=== PATIENT | male | born 1990 | race Caucasian/White ===

== ENCOUNTER 2025-03-24 00:06 | Observation (INO) | payer SELFPAY ==
[2025-03-24] VITALS (16 sets, daily range): BP systolic 105–131; BP diastolic 52–83; PULSE 63–94; RESP 12–18; TEMP 36.3–37; O2SAT 93–100
--- NOTE | ~2025-03-24 | CT_ITS ---
CT of the Abdomen and Pelvis: Indication: Abdominal pain Technique: 2.5 mm axial scans were obtained through the abdomen and pelvis following intravenous adm inistration of 100 cc of Omnipaque 350. Dose reduction technique was used on this scan by utilizing a utomated exposure control and iterative reconstruction technique. The dose-length product (DLP) was 2 98.61 mGy-cm. Findings: Scans through the lung bases are unremarkable. The liver, spleen, pancreas, gallbladder, adrenals and kidneys are within normal limits. No evidence of aortic aneurysm. No lymphadenopathy. Appendix is dilated to 13 mm with mild periappendiceal inflammatory change. No abscess or free air. N o bowel obstruction. Images through the pelvis were performed. Urinary bladder unremarkable. No pelvic mass seen. No ascit es. Impression: Acute appendicitis, as detailed above. No abscess or free air. Reviewed, dictated and finalized at [facility]. Impression: Acute appendicitis, as detailed above. No abscess or free air.
--- OUTSIDE RECORDS SUMMARY | 2025-03-24 00:09 | XMS_ITS | Continuity of Care Document ---
Author Name Debbi Mishra Address [address] [facility] [place] [address] Organization Unknown Address [address] [place] [address] Medications No known medications Problems No known problems
--- OUTSIDE RECORDS SUMMARY | 2025-03-24 00:09 | XMS_ITS | Continuity of Care Document ---
Author Name Debbi Mishra Address [address] [facility] [place] [address] Organization Unknown Address [address] [place] [address] Medications No known medications Problems No known problems
--- OUTSIDE RECORDS SUMMARY | 2025-03-24 00:09 | XMS_ITS | Data Portability ---
Author Organization [place] [facility] [employer], Main Office Address [address] [place] [address] Assessment No assessment recorded. Plan of Treatment Reminders Order Date Submit Date Provider Last Modified By Organization Details Last Modified Time Details Appointments None recorded. Lab None recorded. Referral None recorded. Procedures None recorded. Surgeries None recorded. Imaging None recorded. Medication Orders Medrol (Riccardo) 4 mg tablets in a dose pack 2022 023 [facility][id number], [address], [place], [id number], 3 11:50:18 methocarbam ol 750 mg tablet 2022 023 [facility] #[id number], [address], [place], [id number], 3 11:50:19 Patient TargetsNo targets recorded. Patient InstructionsNo instructions recorded. Reason for Referral None Reported. Results Created Date Observation Date Name Description Value Unit Range Abnormal Flag Note LastModifiedBy Organization Detail LastModifiedTime 06/07/2006/08/2021 REFLE XIVE URINE CULTU RE reflexive urine culture NO CULTU RE INDIC ATED Not Available [facility] [address] [place], [address], 06/08/2021 03:03:05 06/07/20 21 06/08/2021 URINA LYSIS , COMPL ETE W/REF ELIAZAR TO CULTU RE color yellow yellow normal Not Available [employer] [facility] [address] [place], [address], 06/08/2021 03:03:04 06/07/20 21 06/08/2021 URINA LYSIS , COMPL ETE W/REF ELIAZAR TO CULTU RE appearance clear clear normal Not Available [address], [address], 06/08/2021 03:03:04 06/07/20 21 06/08/2021 URINA LYSIS , COMPL ETE W/REF ELIAZAR TO CULTU RE specific gravity 1.020 1.001- 1.035 normal Not Available [address], [address], 06/08/2021 03:03:04 06/07/20 21 06/08/2021 URINA LYSIS , COMPL ETE W/REF ELIAZAR TO CULTU RE pH 6.0 5.0-8. 0 normal Not Available [address], [address], 06/08/2021 03:03:04 06/07/20 21 06/08/2021 URINA LYSIS , COMPL ETE W/REF ELIAZAR TO CULTU RE glucose negati ve negati ve normal Not Available [address], [address], 06/08/2021 03:03:04 06/07/20 21 06/08/2021 URINA LYSIS , COMPL ETE W/REF ELIAZAR TO CULTU RE bilirubin negati ve negati ve normal Not Available [address], [address], 06/08/2021 03:03:04 06/07/2006/08/2021 URINA LYSIS , COMPL ETE W/REF ELIAZAR TO CULTU RE ketones negati ve negati ve normal Not Available [address], [address], 06/08/2021 03:03:04 06/07/20 21 06/08/2021 URINA LYSIS , COMPL ETE W/REF ELIAZAR TO CULTU RE occult blood negati ve negati ve normal Not Available [address], [address], 06/08/2021 03:03:04 06/07/20 21 06/08/2021 URINA LYSIS , COMPL ETE W/REF ELIAZAR TO CULTU RE protein negati ve negati ve normal Not Available [address], [address], 06/08/2021 03:03:04 06/07/2006/08/2021 URINA LYSIS , COMPL ETE W/REF ELIAZAR TO CULTU RE nitrite negati ve negati ve normal Not Available [address], [address], 06/08/2021 03:03:04 06/07/2006/08/2021 URINA LYSIS , COMPL ETE W/REF ELIAZAR TO CULTU RE leukocyte esterase negati ve negati ve normal Not Available [address], [address], 06/08/2021 03:03:04 06/07/20 21 06/08/2021 URINA LYSIS , COMPL ETE W/REF ELIAZAR TO CULTU RE WBC none seen /hpf < or = 5 normal Not Available [address], [address], 06/08/2021 03:03:04 06/07/2006/08/2021 URINA LYSIS , COMPL ETE W/REF ELIAZAR TO CULTU RE RBC none seen /hpf < or = 2 normal Not Available [address], [address], 06/08/2021 03:03:04 06/07/20 21 06/08/2021 URINA LYSIS , COMPL ETE W/REF ELIAZAR TO CULTU RE squamous epithelial cells none seen /hpf < or = 5 normal Not Available [facility] [address], [place], [address], 06/08/2021 03:03:04 06/07/20 21 06/08/2021 URINA LYSIS , COMPL ETE W/REF ELIAZAR TO CULTU RE bacteria none seen /hpf none seen normal Not Available [facility] [address], [address], 06/08/2021 03:03:04 06/07/20 21 06/08/2021 URINA LYSIS , COMPL ETE W/REF ELIAZAR TO CULTU RE hyaline cast none seen /lpf none seen normal Not Available [facility] [address], [address], 06/08/2021 03:03:04 06/07/20 21 06/08/2021 CBC (INCL UDES DIFF/ PLT) white blood cell count 5.8 thous and/u L 3.8-10 .8 normal Not Available [address], [address], 06/08/2021 03:03:03 06/07/20 21 06/08/2021 CBC (INCL UDES DIFF/ PLT) red blood cell count 5.36 dayanna on/uL 4.20-5 .80 normal Not Available [address], [address], 06/08/2021 03:03:03 06/07/20 21 06/08/2021 CBC (INCL UDES DIFF/ PLT) hemoglobin 16.1 g/dL 13.2-1 7.1 normal Not Available [facility] [address], [address], 06/08/2021 03:03:03 06/07/20 21 06/08/2021 CBC (INCL UDES DIFF/ PLT) hematocrit 47.8 % 38.5-5 0.0 normal Not Available [facility] [address], [address], 06/08/2021 03:03:03 06/07/20 21 06/08/2021 CBC (INCL UDES DIFF/ PLT) MCV 89.2 fL 80.0-1 00.0 normal Not Available [address], [address], 06/08/2021 03:03:03 06/07/20 21 06/08/2021 CBC (INCL UDES DIFF/ PLT) MCH 30.0 pg 27.0-3 3.0 normal Not Available [address], [address], 06/08/2021 03:03:03 06/07/20 21 06/08/2021 CBC (INCL UDES DIFF/ PLT) MCHC 33.7 g/dL 32.0-3 6.0 normal Not Available [address], [address], 06/08/2021 03:03:03 06/07/20 21 06/08/2021 CBC (INCL UDES DIFF/ PLT) RDW 12.3 % 11.0-1 5.0 normal Not Available [address], [address], 06/08/2021 03:03:03 06/07/20 21 06/08/2021 CBC (INCL UDES DIFF/ PLT) platelet count 202 thous and/u L 140-40 0 normal Not Available [address], [address], 06/08/2021 03:03:03 06/07/20 21 06/08/2021 CBC (INCL UDES DIFF/ PLT) MPV 10.6 fL 7.5-12 .5 normal Not Available [address], [address], 06/08/2021 03:03:03 06/07/20 21 06/08/2021 CBC (INCL UDES DIFF/ PLT) absolute neutrophils 3265 cells /uL 1500-7 800 normal Not Available [address], [address], 06/08/2021 03:03:03 06/07/20 21 06/08/2021 CBC (INCL UDES DIFF/ PLT) absolute lymphocytes 1752 cells /uL 850-39 00 normal Not Available [address], [address], 06/08/2021 03:03:03 06/07/20 21 06/08/2021 CBC (INCL UDES DIFF/ PLT) absolute monocytes 452 cells /uL 200-95 0 normal Not Available [address], [address], 06/08/2021 03:03:03 06/07/2006/08/2021 CBC (INCL UDES DIFF/ PLT) absolute eosinophils 290 cells /uL 15-500 normal Not Available [address], [address], 06/08/2021 03:03:03 06/07/20 21 06/08/2021 CBC (INCL UDES DIFF/ PLT) absolute basophils 41 cells /uL 0-200 normal Not Available [address], [address], 06/08/2021 03:03:03 06/07/20 21 06/08/2021 CBC (INCL UDES DIFF/ PLT) neutrophils 56.3 % normal Not Available [address], [address], 06/08/2021 03:03:03 06/07/2006/08/2021 CBC (INCL UDES DIFF/ PLT) lymphocytes 30.2 % normal Not Available [address], [address], 06/08/2021 03:03:03 06/07/20 21 06/08/2021 CBC (INCL UDES DIFF/ PLT) monocytes 7.8 % normal Not Available [address], [address], 06/08/2021 03:03:03 06/07/20 21 06/08/2021 CBC (INCL UDES DIFF/ PLT) eosinophils 5.0 % normal Not Available [address], [address], 06/08/2021 03:03:03 06/07/2006/08/2021 CBC (INCL UDES DIFF/ PLT) basophils 0.7 % normal Not Available [address], [address], 06/08/2021 03:03:03 06/07/2006/08/2021 HEMOG LOBIN A1C hemoglobin A1C 5.2 %_of_ total _HGB <5.7 normal Not Available [address], [address], 06/08/2021 03:03:03 06/07/2006/08/2021 COMPR EHENS COLLEEN METAB OLIC PANEL creatinine 1.02 mg/dL 0.60-1 .35 normal Not Available [address], [address], 06/08/2021 03:03:02 06/07/20 21 06/08/2021 COMPR EHENS COLLEEN METAB OLIC PANEL glucose 82 mg/dL 65-99 normal Fasti ng refer ence inter kendra Not Available [address], [address], 06/08/2021 03:03:02 06/07/20 21 06/08/2021 COMPR EHENS COLLEEN METAB OLIC PANEL urea nitrogen (BUN) 19 mg/dL 7-25 normal Not Available [address], [address], 06/08/2021 03:03:02 06/07/20 21 06/08/2021 COMPR EHENS COLLEEN METAB OLIC PANEL eGFR non-afr. irish 96 mL/mi n/1.7 3m2 > or = 60 normal Not Available [address], [address], 06/08/2021 03:03:02 06/07/20 21 06/08/2021 COMPR EHENS COLLEEN METAB OLIC PANEL eGFR 111 mL/mi n/1.7 3m2 > or = 60 normal Not Available [address], [address], 06/08/2021 03:03:02 06/07/20 21 06/08/2021 COMPR EHENS COLLEEN METAB OLIC PANEL BUN/creatini ne ratio not applic able (calc ) 6-22 Not Available [address], [address], 06/08/2021 03:03:02 06/07/20 21 06/08/2021 COMPR EHENS COLLEEN METAB OLIC PANEL sodium 139 mmol/ L 135-14 6 normal Not Available [address], [address], 06/08/2021 03:03:02 06/07/20 21 06/08/2021 COMPR EHENS COLLEEN METAB OLIC PANEL potassium 4.3 mmol/ L 3.5-5. 3 normal Not Available [address], [address], 06/08/2021 03:03:02 06/07/20 21 06/08/2021 COMPR EHENS COLLEEN METAB OLIC PANEL chloride 101 mmol/ L 98-110 normal Not Available [address], [address], 06/08/2021 03:03:02 06/07/20 21 06/08/2021 COMPR EHENS COLLEEN METAB OLIC PANEL carbon dioxide 31 mmol/ L 20-32 normal Not Available [address], [address], 06/08/2021 03:03:02 06/07/20 21 06/08/2021 COMPR EHENS COLLEEN METAB OLIC PANEL calcium 9.9 mg/dL 8.6-10 .3 normal Not Available [address], [address], 06/08/2021 03:03:02 06/07/20 21 06/08/2021 COMPR EHENS COLLEEN METAB OLIC PANEL protein, total 8.0 g/dL 6.1-8. 1 normal Not Available [address], [address], 06/08/2021 03:03:02 06/07/20 21 06/08/2021 COMPR EHENS COLLEEN METAB OLIC PANEL albumin 5.0 g/dL 3.6-5. 1 normal Not Available [address], [address], 06/08/2021 03:03:02 06/07/20 21 06/08/2021 COMPR EHENS COLLEEN METAB OLIC PANEL globulin 3.0 g/dL_ (calc ) 1.9-3. 7 normal Not Available [address], [address], 06/08/2021 03:03:02 06/07/20 21 06/08/2021 COMPR EHENS COLLEEN METAB OLIC PANEL albumin/glob ulin ratio 1.7 (calc ) 1.0-2. 5 normal Not Available [address], [address], 06/08/2021 03:03:02 06/07/20 21 06/08/2021 COMPR EHENS COLLEEN METAB OLIC PANEL bilirubin, total 1.3 mg/dL 0.2-1. 2 high Not Available [address], [address], 06/08/2021 03:03:02 06/07/20 21 06/08/2021 COMPR EHENS COLLEEN METAB OLIC PANEL alkaline phosphatase 78 U/L 36-130 normal Not Available [address], [address], 06/08/2021 03:03:02 06/07/20 21 06/08/2021 COMPR EHENS COLLEEN METAB OLIC PANEL AST 14 U/L 10-40 normal Not Available [address], [address], 06/08/2021 03:03:02 06/07/20 21 06/08/2021 COMPR EHENS COLLEEN METAB OLIC PANEL ALT 12 U/L 9-46 normal Not Available [address], [address], 06/08/2021 03:03:02 06/07/20 21 06/08/2021 LIPID PANEL , STAND JERRY cholesterol, total 134 mg/dL <200 normal Not Available [address], [address], 06/08/2021 03:03:02 06/07/20 21 06/08/2021 LIPID PANEL , STAND JERRY HDL cholesterol 47 mg/dL > or = 40 normal Not Available [address], [address], 06/08/2021 03:03:02 06/07/20 21 06/08/2021 LIPID PANEL , STAND JERRY triglyceride s 63 mg/dL <150 normal Not Available [address], [address], 06/08/2021 03:03:02 06/07/20 21 06/08/2021 LIPID PANEL , STAND JERRY LDL-choleste rol 73 mg/dL _(michele c) normal Refer ence range : <100 Elvia able range <100 mg/dL for prima ry preve ntion ; <70 mg/dL for patie nts with CHD or diabe tic patie nts with > or = 2 CHD risk facto rs. LDL-C is now calcu lated using the Radha n-Hop kins calcu gypsy n, which is a valid ated novel metho d provi ding emmy r accur acy than the Fried tessa equat ion in the estim ation of LDL-C . Radha delcid SS et al. RODGER. 2013; 310(1 9): 2061- 2068 (http ://ed ucati on.Qu estDi [employer]. com/f aq/FA Q164) Not Available [facility] [address] [address] [place], [address], 06/08/2021 03:03:02 06/07/2006/08/2021 LIPID PANEL , STAND JERRY chol/HDLC ratio 2.9 (calc ) <5.0 normal Not Available [employer] [address] [address] [place], [address], 06/08/2021 03:03:02 06/07/2006/08/2021 LIPID PANEL , STAND JERRY non HDL cholesterol 87 mg/dL _(michele c) <130 normal For patie nts with diabe belinda plus 1 major ASCVD risk facto r, treat ing to a non-H DL-C goal of <100 mg/dL (LDL- C of <70 mg/dL ) is jefferson vasquez optio n. Not Available [employer] [address] [address] [place], [address], 06/08/2021 03:03:02 06/07/2006/08/2021 TSH+F REE T4 TSH 1.13 mIU/L 0.40-4 .50 normal Not Available [employer] [address] [address] [place], [address], 06/08/2021 03:03:01 06/07/20 21 06/08/2021 TSH+F REE T4 T4, free 1.2 NG/dL 0.8-1. 8 normal Not Available [employer] [facility] [address] [place], [address], 06/08/2021 03:03:01 Result Notes None recorded. Problems Name Problem SNOMED Code Status Onset Date Resolution Date Notes Provider Name and Address Organization Details Recorded Time Pityriasis versicolor 98629193 Active 2021 Not Available [facility] 3 23:13:53 Low back strain 318805167 Active 2022 GERRY Hong [address], [place], [address] , [employer] 3 11:49:51 Posterior rhinorrhea 42232926 Active 2022 GERRY Hong [address], [address], [place], [address] , [employer] 3 11:50:37 Problem Notes None recorded. Medical Equipment None Reported. Allergies No known drug allergies Medications Name Sig Start Date Stop Date Status Note LastModified by Organization Details LastModified Time methocarbam ol 750 mg tablet TAKE 1 TABLET BY MOUTH THREE TIMES DAILY NEEDED active Not Available Not Available No t Available methylpredn isolone 4 mg tablets in a dose pack FOLLOW PACKAGE DIRECTION S active Not Available Not Available No t Available ketoconazol e 2 % topical cream APPLY TOPICALLY TO THE AFFECTED AREA EVERY DAY NEEDED 01/08 completed Not Available Not Available Not Available Vitals Date Recorded Body mass index (BMI) Body height Oxygen saturation Oxygen saturation in Arterial blood by Pulse oximetry Heart rate Body temperature Body weight Systolic blood pressure Diastolic blood pressure Provider Name and Address Organization Details Last Updated DateTime 1 23.1 kg/m2 172.72 cm 98 % 98 % 73 /min 97 [degF] 96105.0 4 g 110 mm[Hg] 60 mm[Hg] Not Available [facility] 3 23:12:55 Date Recorded Body mass index (BMI) Body height Oxygen saturation Oxygen saturation in Arterial blood by Pulse oximetry Heart rate Body temperature Body weight Systolic blood pressure Diastolic blood pressure Provider Name and Address Organization Details Last Updated DateTime 2 23.1 kg/m2 172.72 cm 98 % 98 % 78 /min 98.1 [degF] 27479.0 4 g 114 mm[Hg] 72 mm[Hg] Not Available [facility] 3 23:12:55 Date Recorded Body height Body temperature Body mass index (BMI) Body weight Respiratory rate Oxygen saturation Oxygen saturation in Arterial blood by Pulse oximetry Heart rate Systolic blood pressure Diastolic blood pressure Provider Name and Address Organization Details Last Updated DateTime 3 172.72 cm 98 [degF] 23.1 kg/m2 00446.0 4 g 16 /min 99 % 99 % 72 /min 118 mm[Hg] 72 mm[Hg] [facility] [employer] 3 11:28:51 Social History Question Answer Notes LastModified by [employer] ion Details LastModified Time Tobacco Smoking Status Never Smoker Not Available [facility] 01/02/2023 23:12:15 What Is Your Level Of Caffeine Consumption? Heavy [id number] Information not available 01/02/2023 How Much Tobacco Do You Chew? None MIGRATION.[id number] 5752 Information not available 01/02/2023 In The 14 Days Before Symptom Onset, Have You Had Close Contact With A Laboratory-confir med COVID-19 While That Case Was Ill? No MIGRATION.[id number] 2998 Information not available 01/02/2023 In The 14 Days Before Symptom Onset, Have You Had Close Contact With A Person Who Is Under Investigation For COVID-19 While That Person Was Ill? No MIGRATION.998137 7427 Information not available 01/02/2023 What Type Of Diet Are You Following? REGULAR MIGRATION.359487 0418 Information not available 01/02/2023 Which Illicit Or Recreational Drugs Have You Used? None MIGRATION.446508 7690 Information not available 01/02/2023 Have There Been Any Changes To Your Family Or Social Situation? No MIGRATION.110062 4633 Information not available 01/02/2023 What Is The Fluoride Status Of Your Home? Unknown MIGRATION.543333 1858 Information not available 01/02/2023 Are There Any Guns Present In Your Home? Yes MIGRATION.642036 6403 Information not available 01/02/2023 Do You Use Insect Repellent Routinely? No MIGRATION.899385 1613 Information not available 01/02/2023 Where Do You Live? [place] MIGRATION.289039 0059 Information not available 01/02/2023 Do You Have Any Pets? Yes MIGRATION.281200 7317 Information not available 01/02/2023 What Is Your Relationship Status? MIGRATION.660294 0793 Information not available 01/02/2023 Do You Use Your Seat Belt Or Car Seat Routinely? Yes MIGRATION.956476 0233 Information not available 01/02/2023 Do You Have Smoke And Carbon Monoxide Detectors In Your Home? Yes MIGRATION.060973 9870 Information not available 01/02/2023 Are You Passively Exposed To Smoke? No MIGRATION.806264 4688 Information not available 01/02/2023 Are There Any Smokers In Your House? No MIGRATION.254015 4816 Information not available 01/02/2023 How Much Tobacco Do You Smoke? No MIGRATION.511147 5475 Information not available 01/02/2023 Do You Use Sunscreen Routinely? Yes MIGRATION.165046 6857 Information not available 01/02/2023 Have You Recently Traveled Abroad? No MIGRATION.725418 4449 Information not available 01/02/2023 Do You Have Any Dietary Restrictions? No MIGRATION.801209 9071 Information not available 01/02/2023 Sex: Unknown Functional Status Question Answer Note LastModified by Organizat ion Details LastModified Time Do you use any illicit or recreational drugs? No MIGRATION.50222 12730 Information not available 01/02/2023 Do you or have you ever used any other forms of tobacco or nicotine? Yes MIGRATION.41836 28945 Information not available 01/02/2023 What is your level of alcohol consumption? Occasional MIGRATION.86827 65645 Information not available 01/02/2023 Do you or have you ever used smokeless tobacco? Never used smokeless tobacco MIGRATION.85138 05566 Information not available 01/02/2023 Are you currently employed? 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 Current user of electronic cigarettes Marijuana MIGRATION.84879 660[address] Information not available 01/02/2023 What is your exercise level? Occasional MIGRATION.13006 53236 Information not available 01/02/2023 Mental Status None recorded. Family History Relationship Description Onset Age of this Age Resolved Age Notes LastModified by Organization Details LastModified Time Mother Renal failure syndrome [id number] Not available 01/02/2023 23:12:34 Father Malignant neoplasm of lung Smoker MIGRATION.[id number] Not available 01/02/2023 23:12:35 Sister Diabetes mellitus MIGRATION.842 [id number] Not available 01/02/2023 23:12:35 Medical History No medical history recorded. Past Encounters Encounter ID Performer Location Encounter Start Date Encounter Closed Date Diagnosis/Indication Diagnosis SNOMED-CT Code Diagnosis ICD10 Code Diagnosis Note [id number] GERRY Hong [facility] [place] [address] [place] [address] 05/24/2021 00:00:00 06/02/2021 19:51:47 [id number] Kaleb Dudley MD [facility] [place] [address] [place] [address] 03/29/2022 00:00:00 04/02/2022 09:51:12 [id number] GERRY Hong [facility] [place] [address] [place] [address] 01/08/2023 11:19:26 01/08/2023 12:07:05 Low back strain [id number] S39.012A start MDP and methocarba mol 750mg tid PRN Posterior rhinorrhea 758 38854 R09.82 take otc antihistam ine. Health Concerns Section Related Observation LastModified by Organization Detai ls LastModified Time None Recorded Concern Status LastModified by Organization Details LastModified Time None Recorded Advance Directives Directive None Recorded Payers Encounter Date Sequence Insurance Name Policy Number Policy Rico Covered Member ID Rico Member ID Guarantor Name 01/08/2023 1 [employer] ([employer]) [employer] Maria Del Carmen Espino [id number] Maria Del Carmen Espino Notes Date Note Type Note Provider Name and Address Organization Details Recorded Time 05/24/2021 text/html Generic HPI TemplateReported bypatient.Notes:Pt is here today to establish care and to have a wellness exam, doing fine, no complaints Not Available [employer] 06/02/2021 19:51:47 01/08/2023 text/html CoughReported bypatient.Quality:loo se; non productive; no hemoptysis;productive yellow sputum Severity:improving Duration:intermittent Timing:better; actual date: (1.5 weeks) Context:non-smoker Modifying Factors:not doing anything for it. Associated Symptoms:no dyspnea at rest or exertion; no orthopnea; no wheezing ; no edema; no chest pain; no paroxysmal nocturnal dyspnea; no daytime somnolence; no heartburn; no snoring; no fever; no chills; no vomiting; no agitation; no sleep attacks;post nasal drip; nasal drainageGeneric HPI TemplateReported bypatient.Location:R hip Quality:radiating down this R thigh/outer leg. Sharp w/certain movement and ache constant Severity:pain rated in general 4/10 and its worse 7/10 Duration:constant Onset/Timin days Context:started when he was putting his daughter in a chair. Aggravating factors:stretching Alleviating factors:nothing really. He has been taking ibuprofen/tylenol but not noticing a change in it. GERRY Hong [address] [facility], [address] [address], [place], [address], [employer] 01/27/2023 19:12:37
--- NOTE | 2025-03-24 01:28 | ED_ITS ---
HPI - Abdominal Pain General Chief Complaint: Abdominal Pain <Gretta Hernandez PA-C - Last Filed: 03/24/25 02:39> Stated Complaint: abd pain <Gretta Hernandez PA-C - Last Filed: 03/24/25 02:39> Time Seen by Provider: 03/24/25 01:21 <Gretta Hernandez PA-C - Last Filed: 03/24/25 02:39> History of Present Illness HPI narrative: 35 y/o M with a reported history of kidney stones presents to the emergency department for periumbilical abdominal pain that started at 7:30 p.m. yesterday evening. Patient states the pain is sharp in nature located in his periumbilical region with associated nausea and vomiting. States he has never had pain like this before. He denies dysuria, hematuria, diarrhea. States he had a subjective fever earlier this evening with chills and sweating, took Tylenol around 8:30 p.m. with improvement. No prior abdominal surgeries. <Gretta Hernandez PA-C - Last Filed: 03/24/25 02:39> Related Data Allergies/Adverse Reactions: Allergies Allergy/AdvReac Type Severity Reaction Status Date / Time No Known Allergies Allergy Verified 03/24/25 01:56 <Gretta Hernandez PA-C - Last Filed: 03/24/25 02:39> Review of Systems 2 Review of Systems: All systems reviewed & are unremarkable except as noted in HPI and below <Gretta Hernandez PA-C - Last Filed: 03/24/25 02:39> [facility] Family History Family History: Family History Sibling Diabetes mellitus Father Family history of lung cancer <TOM Sanon Last Filed: 03/24/25 02:39> Social History Social History: Social History Smoking status: Never smoker Alcohol intake: never <TOM Sanon Last Filed: 03/24/25 02:39> Exam 2 Narrative: GENERAL: Well-appearing, well-nourished, and in no acute distress. HEAD: Normocephalic, atraumatic. EYES: EOMI. ENT: Nares clear, no rhinorrhea or epistaxis. Mucous membranes moist. NECK: Supple. CHEST: Clear to auscultation. No respiratory distress. HEART: Regular rate and rhythm. No murmur heard. Normal peripheral pulses. ABDOMEN: Normoactive bowel sounds. Abdomen soft with tenderness to the periumbilical region, suprapubic and right lower quadrant. No rebound or rigidity. No CVA tenderness EXTREMITIES: Normal range of motion. No edema. SKIN: Warm, dry, no rash. NEURO: No focal deficits. Alert and oriented x3 <Gretta Hernandez PA-C - Last Filed: 03/24/25 02:39> Course Reevaluation(s) Reevaluation #1: CT showing acute appendicitis. I did re-evaluated patient, he is denying any pain right now, appears quite comfortable, updated on findings and plan for surgery. Discussed with surgeon who will admit patient <Bibi Fraire MD - Last Filed: 03/24/25 06:18> Vital Signs Vital signs: Vital Signs Temperature 97.6 F 03/24/25 00:06 Pulse Rate 94 03/24/25 00:06 Respiratory Rate 18 03/24/25 00:06 Blood Pressure 114/58 L 03/24/25 00:06 Pulse Oximetry 97 03/24/25 00:06 Oxygen Delivery Room Air 03/24/25 00:06 Temperature 97.6 F 03/24/25 00:06 Pulse Rate 78 03/24/25 05:55 Respiratory Rate 16 03/24/25 05:55 Blood Pressure 108/72 03/24/25 05:55 Pulse Oximetry 100 03/24/25 05:55 Oxygen Delivery Room Air 03/24/25 00:06 <Gretta Hernandez PA-C - Last Filed: 03/24/25 02:39> Vital Signs Temperature 97.6 F 03/24/25 00:06 Pulse Rate 94 03/24/25 00:06 Respiratory Rate 18 03/24/25 00:06 Blood Pressure 114/58 L 03/24/25 00:06 Pulse Oximetry 97 03/24/25 00:06 Oxygen Delivery Room Air 03/24/25 00:06 Temperature 97.6 F 03/24/25 00:06 Pulse Rate 78 03/24/25 05:55 Respiratory Rate 16 03/24/25 05:55 Blood Pressure 108/72 03/24/25 05:55 Pulse Oximetry 100 03/24/25 05:55 Oxygen Delivery Room Air 03/24/25 00:06 <Bibi Fraire MD - Last Filed: 03/24/25 06:18> MDM - Abdominal Pain MDM Narrative Medical decision making narrative: 35-year-old male presents emergency department for periumbilical abdominal pain, nausea and vomiting that started at 7:30 p.m.. Triage vitals are stable. Patient is afebrile and nontoxic appearing. Exam is significant for the above. Plan to obtain lab work and CT abdomen pelvis. Patient given IV fluids, Zofran and Toradol for symptomatic control. Lab work with leukocytosis of 16.6, no bandemia. Chemistries are largely unremarkable, lipase is normal. Pending CT abdomen pelvis and UA at time of sign-out to Dr. Fraire. <Gretta Hernandez PA-C - Last Filed: 03/24/25 02:39> Lab Data Result diagrams: 03/24/25 02:00 03/24/25 02:00 <Gretta Hernandez PA-C - Last Filed: 03/24/25 02:39> Labs: Lab Results 03/24/25 03/24/25 Range/Units 02:00 03:02 WBC 16.6 H (4.5-10.0) K/mm3 RBC 4.74 (4.6-6.20) M/mm3 Hgb 14.0 (14.0-18.0) g/dL Hct 41.5 L (42.0-52.0) % MCV 87.6 (80-100) fl MCH 29.5 (26-34) pg MCHC 33.7 (32-36) g/dl RDW 11.8 (11.5-14.5) % Plt Count 235 (150-375) k/mm3 MPV 9.9 (7.4-10.4) fl Immature Gran % (Auto) 0.5 (0-0.5) % Neut % (Auto) 85.6 H (45.5-73.1) % Lymph % (Auto) 5.9 L (18.3-44.2) % [place] % (Auto) 7.7 (2.6-8.5) % Eos % (Auto) 0.1 (0-4.4) % Baso % (Auto) 0.2 (0.2-1.2) % Lymph # (Auto) 0.98 (0.9-3.2) K/mm3 [place] # (Auto) 1.3 H (0.1-0.6) K/mm3 Eos # (Auto) 0.0 (0-0.3) K/mm3 Baso # (Auto) 0.0 (0.0-0.1) K/mm3 Abs Immat Gran (auto) 0.09 H (0.00-0.031) K/mm3 Absolute Neuts (auto) 14.2 H (1.3-6.7) K/mm3 Absolute Nucleated RBC 0.000 (0.0-0.012) K/mm3 Nucleated RBC % 0.0 (0.0-0.2) % Sodium 137 (137-145) mmol/L Potassium 4.1 (3.4-5.0) mmol/L Chloride 101 (98-107) mmol/L Carbon Dioxide 27 (22-30) mmol/L Anion Gap 9 (4-12) mmol/L BUN 18 (9-20) mg/dL Creatinine 1.05 (0.7-1.3) mg/dL Estim Creat Clear Calc 82 ml/min Estimated GFR > 60 (59 - ) Glucose 127 H (65-110) mg/dL Calcium 9.1 (8.4-10.2) mg/dL Total Bilirubin 1.7 H (0.2-1.3) mg/dL AST 29 (17-59) U/L ALT 22 (6-50) U/L Alkaline Phosphatase 61 (38-126) U/L Total Protein 8.0 (6.3-8.2) g/dL Albumin 4.6 (3.5-5.1) g/dL Lipase 49 (23-300) U/L Urine Color Yellow (Yellow) Urine Appearance Clear (Clear) Urine pH 6.0 (5.0-9.0) Ur Specific [place] > 1.045 H (1.001-1.035) Urine Protein Negative (Negative) mg/dL Urine Glucose (UA) Negative (Negative) mg/dL Urine Ketones Trace H (Negative) mg/dL Ur Blood (Man) Negative (Negative) Urine Nitrate Negative (Negative) Urine Bilirubin Negative (Negative) Urine Urobilinogen 1.0 (<2.0) mg/dL Leukocyte Esterase Rfl Negative (Negative) TAL/UL <Gretta Hernandez PA-C - Last Filed: 03/24/25 02:39> Lab Results 03/24/25 03/24/25 Range/Units 02:00 03:02 WBC 16.6 H (4.5-10.0) K/mm3 RBC 4.74 (4.6-6.20) M/mm3 Hgb 14.0 (14.0-18.0) g/dL Hct 41.5 L (42.0-52.0) % MCV 87.6 (80-100) fl MCH 29.5 (26-34) pg MCHC 33.7 (32-36) g/dl RDW 11.8 (11.5-14.5) % Plt Count 235 (150-375) k/mm3 MPV 9.9 (7.4-10.4) fl Immature Gran % (Auto) 0.5 (0-0.5) % Neut % (Auto) 85.6 H (45.5-73.1) % Lymph % (Auto) 5.9 L (18.3-44.2) % [place] % (Auto) 7.7 (2.6-8.5) % Eos % (Auto) 0.1 (0-4.4) % Baso % (Auto) 0.2 (0.2-1.2) % Lymph # (Auto) 0.98 (0.9-3.2) K/mm3 [place] # (Auto) 1.3 H (0.1-0.6) K/mm3 Eos # (Auto) 0.0 (0-0.3) K/mm3 Baso # (Auto) 0.0 (0.0-0.1) K/mm3 Abs Immat Gran (auto) 0.09 H (0.00-0.031) K/mm3 Absolute Neuts (auto) 14.2 H (1.3-6.7) K/mm3 Absolute Nucleated RBC 0.000 (0.0-0.012) K/mm3 Nucleated RBC % 0.0 (0.0-0.2) % Sodium 137 (137-145) mmol/L Potassium 4.1 (3.4-5.0) mmol/L Chloride 101 (98-107) mmol/L Carbon Dioxide 27 (22-30) mmol/L Anion Gap 9 (4-12) mmol/L BUN 18 (9-20) mg/dL Creatinine 1.05 (0.7-1.3) mg/dL Estim Creat Clear Calc 82 ml/min Estimated GFR > 60 (59 - ) Glucose 127 H (65-110) mg/dL Calcium 9.1 (8.4-10.2) mg/dL Total Bilirubin 1.7 H (0.2-1.3) mg/dL AST 29 (17-59) U/L ALT 22 (6-50) U/L Alkaline Phosphatase 61 (38-126) U/L Total Protein 8.0 (6.3-8.2) g/dL Albumin 4.6 (3.5-5.1) g/dL Lipase 49 (23-300) U/L Urine Color Yellow (Yellow) Urine Appearance Clear (Clear) Urine pH 6.0 (5.0-9.0) Ur Specific [place] > 1.045 H (1.001-1.035) Urine Protein Negative (Negative) mg/dL Urine Glucose (UA) Negative (Negative) mg/dL Urine Ketones Trace H (Negative) mg/dL Ur Blood (Man) Negative (Negative) Urine Nitrate Negative (Negative) Urine Bilirubin Negative (Negative) Urine Urobilinogen 1.0 (<2.0) mg/dL Leukocyte Esterase Rfl Negative (Negative) TAL/UL <Bibi Fraire MD - Last Filed: 03/24/25 06:18> Imaging Data Radiologist's impression: ITS Impressions Abdomen/Pelvis CT 03/24/25 05:30 Impression: Acute appendicitis, as detailed above. No abscess or free air. <Gretta Hernandez PA-C - Last Filed: 03/24/25 02:39> ITS Impressions Abdomen/Pelvis CT 03/24/25 05:30 Impression: Acute appendicitis, as detailed above. No abscess or free air. <Bibi Fraire MD - Last Filed: 03/24/25 06:18> Discharge Plan Discharge Clinical Impression: Acute appendicitis <TOM Sanon Last Filed: 03/24/25 02:39> Patient Disposition: Still a Patient <TOM Sanon Last Filed: 03/24/25 02:39> Condition: Serious <TOM Saonn Last Filed: 03/24/25 02:39> Instructions: Antibiotic Form <TOM Sanon Last Filed: 03/24/25 02:39> Patient Language: Jamaican <TOM Sanon Last Filed: 03/24/25 02:39> Follow-up/Referrals: PHYSICIAN NOT ON STAFF,NONSTAFF [Primary Care Provider] - <TOM Sanon Last Filed: 03/24/25 02:39>
[2025-03-24] MEDS: ONDANSETRON INJ 4 MG/2 ML VIAL IV PUSH (02:00)
[2025-03-24] MEDS: KETOROLAC 30 MG/ML VIAL (*BKC) IV PUSH (02:02)
[2025-03-24] MEDS: SODIUM CHLORIDE 0.9% IV 1,000 ML 999 ML IV CONT (02:03)
[2025-03-24 02:12] LABS: Basophils Percent Auto 0.2 % (0.2-1.2); Eosinophils Percent Auto 0.1 % (0-4.4); Hematocrit 41.5 % (42.0-52.0); Immature Granulocyte Absolute 0.09 K/mm3 (0.00-0.031); Immature Granulocyte Percent A 0.5 % (0-0.5); Lymphocytes Absolute Auto 0.98 K/mm3 (0.9-3.2); Lymphocytes Percent Auto 5.9 % (18.3-44.2); Mean Corpuscular HGB Conc 33.7 g/dl (32-36); Mean Corpuscular Hemoglobin 29.5 pg (26-34); Mean Corpuscular Volume 87.6 fl (80-100); Mean Platelet Volume 9.9 fl (7.4-10.4); Monocytes Absolute Auto 1.3 K/mm3 (0.1-0.6); Monocytes Percent Auto 7.7 % (2.6-8.5); Neutrophils Absolute Auto 14.2 K/mm3 (1.3-6.7); Neutrophils Percent Auto 85.6 % (45.5-73.1); Platelet Count Result 235 k/mm3 (150-375); Red Blood Count 4.74 M/mm3 (4.6-6.20); Red Cell Distribution Width 11.8 % (11.5-14.5); White Blood Count 16.6 K/mm3 (4.5-10.0)
[2025-03-24 02:23] LABS: Alanine Aminotransferase 22 U/L (6-50); Albumin Level 4.6 g/dL (3.5-5.1); Alkaline Phosphatase 61 U/L (38-126); Anion Gap 9 mmol/L (4-12); Aspartate Amino Transferase 29 U/L (17-59); Bilirubin,Total 1.7 mg/dL (0.2-1.3); Blood Urea Nitrogen 18 mg/dL (9-20); Calcium 9.1 mg/dL (8.4-10.2); Carbon Dioxide 27 mmol/L (22-30); Chloride 101 mmol/L (98-107); Estimated CRCL calculation 82 ml/min; Estimated Glomerular Filt Rate > 60; Glucose 127 mg/dL (65-110); Lipase 49 U/L (23-300); Potassium 4.1 mmol/L (3.4-5.0); Sodium 137 mmol/L (137-145)
[2025-03-24 03:08] LABS: Add Urine Microscopic? NO; Appearance Urine Clear (Clear); Bilirubin Urine Negative (Negative); Blood Urine Negative (Negative); Color Urine Yellow (Yellow); Glucose Urine UA Negative (Negative); Ketones Urine Trace mg/dL (Negative); Leukocyte Esterase Ur Negative LEU/UL (Negative); Nitrate Urine Negative (Negative); Protein Urine Negative (Negative); Specific Grav Ur > 1.045 (1.001-1.035)
[2025-03-24] MEDS: ceFAZolin 2 GM/D5W 50 ML 2 GM/50 ML BAG IVPB (05:54)
[2025-03-24] MEDS: MORPHINE SULFATE (*CRX) 4 MG/ML INJ IV PUSH (06:32)
[2025-03-24] MEDS: metroNIDAZOLE 500 MG/ISO 100ML 500 MG/100 ML BAG 100 MG IVPB (06:34)
--- NOTE | 2025-03-24 09:25 | PM.IMHP ---
H&P: HPI History of Present Illness Date/Time: 03/24/25 09:25 Chief Complaint: Right lower quadrant pain Narrative: This is a 35-year-old who presented to the ED overnight with complaints of right lower quadrant abdominal pain x 6 hours. He initially noticed pain around 7:00 p.m. last night. His pain progressed throughout the night. He had nausea and vomiting, and complains of subjective chills and fever. He had a bowel movement without relief in pain, and decided come into the ED for evaluation. [place] [address] scan of the abdomen and pelvis showed acute uncomplicated appendicitis. He was given 1 dose of IV cefazolin and metronidazole in the ED. He is now seen on the medical floor. Review of Systems Review of Systems: All systems reviewed & are unremarkable except as noted in HPI and below PMFSH Surgical History Surgical History No pertinent past surgical history Family History Family History Sibling Diabetes mellitus Father Family history of lung cancer Social History Social History Smoking status: Never smoker Alcohol intake: never Meds Home Medications and Allergies Allergies Allergy/AdvReac Type Severity Reaction Status Date / Time No Known Allergies Allergy Verified 03/24/25 01:56 Vital Signs Vital Signs - 24 hr 03/24/25 00:06 03/24/25 02:02 03/24/25 05:55 Temperature 97.6 F Pulse Rate 94 79 78 Respiratory Rate 18 15 16 Blood Pressure 114/58 L 121/61 108/72 Pulse Oximetry 97 100 100 Oxygen Delivery Room Air 03/24/25 06:01 03/24/25 07:33 Temperature Pulse Rate 76 63 Respiratory Rate 18 17 Blood Pressure 111/71 107/64 Pulse Oximetry 100 96 Oxygen Delivery Exam Const: General: comfortable and no acute distress Nutritional Appearance: average body habitus Orientation/consciousness: patient oriented x3 HENMT: Head: normocephalic and atraumatic Ears: hearing grossly normal bilaterally Mouth: Yes moist mucous membranes Eyes: General: appearance normal, both eyes and all related structures Pupils: Equal, round and reactive pupils present Neck: Neck: normal visual inspection and full ROM Resp: Effort & Inspection: no respiratory distress Auscultation: clear to auscultation bilaterally Cardio: Rate: regular rate Rhythm: regular rhythm Peripheral pulses: Peripheral pulses 2+ throughout GI: Inspection: non-distended and no scars GI Palp: Yes Soft to palpation, Yes Tenderness to palpation present (GI) (RLQ), No Guarding due to palpation present (GI), Yes No hepatosplenomegaly present and No Rebound tenderness present Percussion: Yes normal to percussion Auscultation: normal bowel sounds Skin: General skin exam: normal color Neuro: General: moves all extremities and no focal motor deficits Speech: normal speech Motor exam (neuro): 5/5 motor strength present throughout Extrem: General: normal to inspection and no edema Psych: Mental Status: mental status grossly normal Attitude: cooperative Insight: Good insight present (Psych) Judgement: Good judgement present (Psych) H&P: Results Labs Labs: Short CBC 03/24/25 Range/Units 02:00 WBC 16.6 H (4.5-10.0) K/mm3 Hgb 14.0 (14.0-18.0) g/dL Hct 41.5 L (42.0-52.0) % Plt Count 235 (150-375) k/mm3 BMP 03/24/25 02:00 Sodium 137 Potassium 4.1 Chloride 101 Carbon Dioxide 27 BUN 18 Creatinine 1.05 Glucose 127 H Calcium 9.1 Liver Function 03/24/25 Range/Units 02:00 Total Bilirubin 1.7 H (0.2-1.3) mg/dL AST 29 (17-59) U/L ALT 22 (6-50) U/L Alkaline Phosphatase 61 (38-126) U/L Albumin 4.6 (3.5-5.1) g/dL Urine 03/24/25 Range/Units 03:02 Urine Color Yellow (Yellow) Urine Appearance Clear (Clear) Urine pH 6.0 (5.0-9.0) Ur Specific [place] > 1.045 H (1.001-1.035) Urine Protein Negative (Negative) mg/dL Urine Glucose (UA) Negative (Negative) mg/dL Imaging CT scan - abdomen: Radiologist's impression: ITS Impressions Abdomen/Pelvis CT 03/24/25 05:30 Impression: Acute appendicitis, as detailed above. No abscess or free air. Assessment and Plan Assessment and plan (1) Acute appendicitis: Code(s): K35.80 - Unspecified acute appendicitis Status: Acute Assessment and Plan: CT scan reviewed and discussed with the patient. There is evidence of acute appendicitis. No perforation or abscess evident on CT. We discussed both nonoperative treatment versus surgical management and the details of both options. We discussed the details of a laparoscopic appendectomy, possible open, under general anesthesia that would be done by Dr. Delgado. Description of the procedure, risks, benefits, alternatives, and expected recovery were discussed. He agrees to proceed with surgery. We will keep NPO and continue IV antibiotics, IV fluids, and analgesics as needed pre-operatively. Proceed to the OR later today for urgent appendectomy. Plan I have discussed the patient's case and plan of care with Dr. Delgado.
--- NOTE | 2025-03-24 10:09 | ADMGEN ---
This patient, Maria Del Carmen Espino, was admitted to [facility] Surg Room 324-02. Patient/family oriented to hospital policies and general routines including ID bracelet, bed and alarms, visiting hours, pain management, procedures, bathroom and other care routines, personal items, smoking policy, room service/diet, and visiting hours. Information on how to activate the Rapid Response Team has been discussed. Patient/Family are encouraged to report perceived risks to care and to ask questions if they do not understand what they are told or what they should do.
--- NOTE | 2025-03-24 12:18 | WPDHPUPDATE1 ---
History and Physical Update Update Date/Time: 03/24/25 12:18 History and Physical has been reviewed, including an updated exam of the patient. There are NO changes in the patient's condition. Risks, benefits, and alternatives have been discussed and questions answered. Patient agrees to proceed with procedure.
--- NOTE | 2025-03-24 12:28 | P.PNAN_ITS ---
Anes - Initial Pre Proc Eval Procedure: Operation Date: 03/24/25 12:30 Proposed Procedures p Laparoscopic Appendectomy - Mikey Delgado DO Date/Time: 03/24/25 12:28 Surgeon: Mikey Delgado DO Pre Op Diagnosis: appy Patient Data Age: 35 Gender: M Height: 1.78 m Weight: 68.12 kg Last Vital Signs Temp 37.0 C 03/24/25 12:10 Pulse 74 03/24/25 12:10 Resp 18 03/24/25 12:10 BP 112/58 L 03/24/25 12:10 Pulse Ox 100 03/24/25 12:10 O2 Del Method Room Air 03/24/25 12:10 Allergies Allergy/AdvReac Type Severity Reaction Status Date / Time No Known Allergies Allergy Verified 03/24/25 10:43 Home Medications ?Medication ?Instructions ?Recorded ?Confirmed ?Type No Home Medications 03/24/25 03/24/25 History Laboratory Tests 03/24/25 03/24/25 02:00 03:02 WBC 16.6 H K/mm3 (4.5-10.0) RBC 4.74 M/mm3 (4.6-6.20) Hgb 14.0 g/dL (14.0-18.0) Hct 41.5 L % (42.0-52.0) MCV 87.6 fl (80-100) MCH 29.5 pg (26-34) MCHC 33.7 g/dl (32-36) RDW 11.8 % (11.5-14.5) Plt Count 235 k/mm3 (150-375) MPV 9.9 fl (7.4-10.4) Immature Gran % (Auto) 0.5 % (0-0.5) Neut % (Auto) 85.6 H % (45.5-73.1) Lymph % (Auto) 5.9 L % (18.3-44.2) [place] % (Auto) 7.7 % (2.6-8.5) Eos % (Auto) 0.1 % (0-4.4) Baso % (Auto) 0.2 % (0.2-1.2) Lymph # (Auto) 0.98 K/mm3 (0.9-3.2) [place] # (Auto) 1.3 H K/mm3 (0.1-0.6) Eos # (Auto) 0.0 K/mm3 (0-0.3) Baso # (Auto) 0.0 K/mm3 (0.0-0.1) Abs Immat Gran (auto) 0.09 H K/mm3 (0.00-0.031) Absolute Neuts (auto) 14.2 H K/mm3 (1.3-6.7) Absolute Nucleated RBC 0.000 K/mm3 (0.0-0.012) Nucleated RBC % 0.0 % (0.0-0.2) Sodium 137 mmol/L (137-145) Potassium 4.1 mmol/L (3.4-5.0) Chloride 101 mmol/L (98-107) Carbon Dioxide 27 mmol/L (22-30) Anion Gap 9 mmol/L (4-12) BUN 18 mg/dL (9-20) Creatinine 1.05 mg/dL (0.7-1.3) Estim Creat Clear Calc 82 ml/min Estimated GFR > 60 (59 - ) Glucose 127 H mg/dL (65-110) Calcium 9.1 mg/dL (8.4-10.2) Total Bilirubin 1.7 H mg/dL (0.2-1.3) AST 29 U/L (17-59) ALT 22 U/L (6-50) Alkaline Phosphatase 61 U/L (38-126) Total Protein 8.0 g/dL (6.3-8.2) Albumin 4.6 g/dL (3.5-5.1) Lipase 49 U/L (23-300) Urine Color Yellow (Yellow) Urine Appearance Clear (Clear) Urine pH 6.0 (5.0-9.0) Ur Specific [place] > 1.045 H (1.001-1.035) Urine Protein Negative mg/dL (Negative) Urine Glucose (UA) Negative mg/dL (Negative) Urine Ketones Trace H mg/dL (Negative) Ur Blood (Man) Negative (Negative) Urine Nitrate Negative (Negative) Urine Bilirubin Negative (Negative) Urine Urobilinogen 1.0 mg/dL (<2.0) Leukocyte Esterase Rfl Negative TAL/UL (Negative) Patient hx anesthesia problems: none Family hx anesthesia problems: none Results Review: All pre-operative results and documents have been reviewed as part of the pre- operative evaluation. [facility] Surgical History Surgical History No pertinent past surgical history Family History Family History Sibling Diabetes mellitus Father Family history of lung cancer Social History Social History Smoking status: Never smoker Second hand tobacco smoke exposure: No Alcohol intake: never Do You Feel Safe in your Home?: Yes Lack of Transportation: No Lack of Food: Never True Current Housing: I Have Housing Concerned About Future Housing: No Difficulty Paying Gas/Electric Bills: No Difficulty Paying for Meds: No Currently Unemployed: No Education: High School Diploma/GED Difficulty w/ Childcare or Family Care: No Spiritual care concerns: No Anes - Eval Final PreProcedure Day of Procedure 03/24/25 12:28 Patient weight: normal Heart: regular rate and rhythm Lungs: clear to auscultation Airway: Mallampati scale class II Neurological: alert and oriented Last oral intake: >/= 8 hours ASA classification: II Emergent: yes Anesthetic plan: proceed Anesthesia type and monitoring: general ETT and standard monitoring Results Review: All pre-operative results and documents have been reviewed as part of the pre-op erative evaluation. Informed Consent: The patient's anesthetic plan and its attendant risks and benefits were discussed with the patient/family/POA. Questions were solicited and answers provided to the satisfaction of the patient/family/POA.
[2025-03-24] MEDS: LACTATED RINGERS 1,000 ML 30 ML IV CONT (12:35)
[2025-03-24] MEDS: BUPIVACAINE/EPINEPHRINE 0.5% 50 ML VIAL 30 ML INFILTRATE (13:04)
--- NOTE | 2025-03-24 13:34 | W.PM.PROC2 ---
Procedure Note - Detailed Date of Procedure 03/24/25 Pre-op Diagnosis Acute appendicitis Post-op Diagnosis Same Procedure Performed Laparoscopic appendectomy Surgeon Mikey Delgado, DO Anesthesia General and Local (0.5% bupivacaine with epinephrine) Indications This is a 35-year-old man who presented to the emergency department overnight with periumbilical and right lower quadrant abdominal pain. His pain started around 6:00 p.m. last night. He denies any fevers. He has never had any symptoms like this in the past. In the emergency department he was noted to have an elevated white blood count and CT showed evidence of acute appendicitis. He was placed in observation early this morning and further discussions were made with the patient about treatment options. Decision was made to proceed with laparoscopic appendectomy, possible open. Findings Laparoscopic appendectomy was performed. The appendix appeared dilated and indurated, but there was no evidence of perforation or abscess. The base of the appendix appeared healthy and viable. No other surrounding abnormalities were noted. The appendix was removed and sent to the lab for pathology. Description of Procedure Procedure as well as risks, benefits, and alternatives were explained to the patient. The patient agreed to proceed. Written consent was obtained and placed in chart prior to procedure. The patient was brought back to surgical suite. He was placed supine on operating table. Time-out was done to confirm the patient and procedure. The patient was then intubated by the Anesthesia Department. His abdomen was prepped and draped in sterile fashion using chlorhexidine prep. A 12 mm incision was made at the inferior portion of the umbilicus. Blunt dissection was carried out down to the linea alba. The linea alba was then incised using a 15 blade scalpel. Then bluntly entered into the peritoneal cavity. A 12 mm trocar was then inserted, and carbon dioxide insufflation was used to create a pneumoperitoneum. The camera was inserted and the abdomen was inspected. No immediate abnormalities were identified. The patient was then placed in slight Trendelenburg position and rotated to the left. A 5 mm incision was made in the suprapubic region in midline and a 5 mm trocar was inserted under direct visualization. A 5 mm incision was made in the left lower quadrant and a 5 mm trocar was inserted under direct visualization. The right lower quadrant was carefully inspected. The cecum was identified and then this was traced back to the appendix. The appendix was identified and grasped at the mesoappendix and lifted anteriorly. Careful blunt dissection was carried out at the base of the appendix through the mesoappendix using a [place] grasper. An Endo-SANDIE 45 mm blue load stapler was then advanced across the base of the appendix and clamped and fired. A white reload was then clamped across the mesoappendix and fired. This freed up our appendix completely. It was then placed in an EndoCatch bag and removed through the umbilical port. The staple lines were then inspected. Hemostasis appeared adequate and the staple lines appeared secure. The area was then irrigated with sterile saline. The pelvis was then carefully inspected and irrigated with sterile saline as well and the remainder of the abdomen was carefully inspected. The patient was then flattened out in bed. One final inspection was made around the abdominal cavity and no other abnormalities were seen. The ports were then removed under direct visualization. The camera was removed and the pneumoperitoneum was released. The fascia of the umbilical incision was reapproximated using an 0 Vicryl [id number] suture. 0.5% bupivacaine with epinephrine was infiltrated locally around each of the incisions. The skin of the incisions was then approximated using 4-0 Monocryl subcuticular suture and Exofin glue was applied on top. The patient was then awakened from anesthesia, extubated, and transferred to Recovery. Estimated Blood Loss 5 Pathology Yes (Appendix) Complications No immediate complications Condition Stable Disposition Floor [facility] Billing Surgery - Charge Forward: Surgery Billing
--- NOTE | 2025-03-24 13:39 | P.DS_ITS ---
DS: Admitting Diagnosis Discharge Date 03/24/2025 Admitting Diagnosis Acute uncomplicated appendicitis DS: Discharge Diagnosis Discharge Diagnosis (1) Acute appendicitis: Qualifiers: Acute appendicitis type: with localized peritonitis Appendicitis abscess presence: without abscess Appendicitis gangrene presence: without gangrene Appendicitis perforation presence: without perforation Qualified Code(s): K35.30 - Acute appendicitis with localized peritonitis, without perforation or gangrene Code(s): K35.80 - Unspecified acute appendicitis Status: Acute DS: Summary Hospital Course Reason for hospitalization: Acute appendicitis Hospital Course: This is a 35-year-old man who presented to the emergency department with right lower quadrant pain that started yesterday. He had an elevated white blood count and CT showed evidence of acute appendicitis. He was placed in observation and then taken for surgery on 03/24/2025. Laparoscopic appendectomy was performed and then he was returned to the surgical floor postoperatively. His diet and activity were advanced as tolerated. He was discharged home once he was tolerating his diet, vitals remained stable, pain was controlled, and he was ambulating in the halls. Status at Discharge Functional status at discharge: independent ambulation Overall status at discharge: patient is progressing back to baseline Time Spent with Patient Time attestation: Total time spent providing and/or coordinating discharge services: Time spent: Less than 30 minutes Exam Const: General: comfortable and no acute distress Orientation/consciousness: patient oriented x3 Resp: Effort & Inspection: normal respiratory effort Auscultation: clear to auscultation bilaterally Cardio: Rate: regular rate Rhythm: regular rhythm GI: Inspection: incision (intact with glue) DS: Data Data Completed and Pending Pending studies at discharge: Pending at discharge 03/24/25 13:02 Surgical [PTH] Routine Labs on day of discharge: Labs from last 24 hours 03/24/25 03/24/25 03:02 02:00 WBC 16.6 H RBC 4.74 Hgb 14.0 Hct 41.5 L MCV 87.6 MCH 29.5 MCHC 33.7 RDW 11.8 Plt Count 235 MPV 9.9 Immature Gran % (Auto) 0.5 Neut % (Auto) 85.6 H Lymph % (Auto) 5.9 L Centre % (Auto) 7.7 Eos % (Auto) 0.1 Baso % (Auto) 0.2 Lymph # (Auto) 0.98 Centre # (Auto) 1.3 H Eos # (Auto) 0.0 Baso # (Auto) 0.0 Abs Immat Gran (auto) 0.09 H Absolute Neuts (auto) 14.2 H Absolute Nucleated RBC 0.000 Nucleated RBC % 0.0 Sodium 137 Potassium 4.1 Chloride 101 Carbon Dioxide 27 Anion Gap 9 BUN 18 Creatinine 1.05 Estim Creat Clear Calc 82 Estimated GFR > 60 Glucose 127 H Calcium 9.1 Total Bilirubin 1.7 H AST 29 ALT 22 Alkaline Phosphatase 61 Total Protein 8.0 Albumin 4.6 Lipase 49 Urine Color Yellow Urine Appearance Clear Urine pH 6.0 Ur Specific [place] > 1.045 H Urine Protein Negative Urine Glucose (UA) Negative Urine Ketones Trace H Ur Blood (Man) Negative Urine Nitrate Negative Urine Bilirubin Negative Urine Urobilinogen 1.0 Leukocyte Esterase Rfl Negative Imaging Radiologist's impression: ITS Impressions Abdomen/Pelvis CT 03/24/25 05:30 Impression: Acute appendicitis, as detailed above. No abscess or free air. Discharge Plan Discharge Attending physician on discharge: Mikey Beebe Consulting providers: Gretta Hernandez; Key Garcia; Pete Cheung; Niko Ryan Discharging Clinician: Mikey Beebe Anticipated Discharge Date/Time: 03/24/25 17:00 Patient Disposition: Home Activity: other - see discharge instructions Diet: other - see discharge instructions Wound Care Instructions: other - see discharge instructions Discharge Instructions: DISCHARGE INSTRUCTION SHEET FOR HERNIA, GALLBLADDER AND APPENDIX SURGERIES DR. BEEBE PATIENT TO TAKE HOME 1. May shower in 24 hours, no soaking in bath/pool x 2weeks. 2. Call office for: * Wound increasingly painful or bleeding * Vomiting * Fever of greater than 101 degrees 3. If no bowel movement for three days, take 1 oz. (30 ml) Milk of Magnesia or MiraLax 17g 1 to 2 times daily. 4. No heavy lifting > 10-15 pounds x 2 weeks for laparoscopic cholecystectomy or appendectomy. 5. No driving for 3 days or while taking narcotic pain medications. 6. Ice to surgical site for 48 hours (30 min on, then 30 min off). 7. Up walking 10-30 minutes three times per day. 8. Resume previous home medications. 9. Follow-up 10-14 days in office for wound check or as previously scheduled. ([phone]) 10. Oral pain medications prescription to be sent to pharmacy. Take Tylenol 500mg every 6 hours and Ibuprofen 600mg every 6 hours for the first 2 days, then as needed. 11. NUTRITION: Start out by drinking fluids and increase your diet as tolerated. If you experience nausea, try dry toast, crackers, and 7-UP. If nausea or vomiting persists, contact your surgeon?s office. 12. Gallbladders-Low Fat Diet for 2 weeks (send care note of low fat diet) 13. Inguinal Hernias-wear scrotal support for 48 hours 14. Abdominal Hernias-if sent home with abdominal binder, wear for the first 2 weeks (may remove to shower or at night to sleep). Revised March 2019 Patient Instructions: Antibiotic Form Patient Language: Serbian Stand Alone Forms: General Discharge Information Follow-up/Referrals: Mikey Beebe, [Physician] - 2 Weeks Discharge Medications: New hydrocodone-acetaminophen 5-325 mg tablet 1 tablet PO Q4H PRN (Reason: pain) Qty: 10 0RF Date of admission: 03/24/25 05:55 Primary Care Provider: PHYSICIAN NOT ON STAFF,NONSTAFF Admitting Provider: Mikey Beebe Attending physician on admission: Mikey Beebe Condition: Improved
[2025-03-24] MEDS: fentaNYL CITRATE INJ (*CRX) 100 MCG/2 ML VIAL 25 MCG IV PUSH ×2 (14:16→14:18)
== END 2025-03-24 20:00 | disposition home or self-care (01) ==
LOC: ANHED 05:43 → ANH3MEDSUR 06:45
PROVIDERS: Physician Assistant; Admitting Provider Surgery; Emergency Provider Emergency Medicine; Visit Provider Surgery
PROC: 0DTJ4ZZ Resection of Appendix, Percutaneous Endoscopic Approach (ICD-10-PCS; CPT 44970; principal; 2025-03-24 12:30)
DX: K35.80 Unspecified acute appendicitis (principal)
CPT/HCPCS: 44970; 36415; 74177; 80053; 81003; 83690; 85025; 88304; 96361; 96365; 96367; 96375; 99285; G0378; J0690; J1100; J1836; J1885; J2250; J2270; J2405; J2704; J3010; J7030; J7120; Q9967